=== PATIENT | female | born 1990 | race Caucasian/White ===

== ENCOUNTER 2017-04-22 10:05 | Outpatient (CLI) | payer BC ==
--- NOTE | 2017-04-22 13:57 | MRI ---
LUMBAR SPINE MRI WITH AND WITHOUT CONTRAST: Date: 04/22/17 HISTORY: [place]. L4-L5 diskectomy. Sciatica and back pain. COMPARISON: None. TECHNIQUE: MRI lumbar spine is performed without intravenous Gadolinium administration. Multisequential, multipl jenna imaging is performed. FINDINGS: Appropriate T1 marrow signal intensity in the lumbar vertebra. Lumbar spine vertebral body height is maintained. There is no fracture. No significant STIR hyperintensity to suggest edema or ligamentous injury. No pathologic enhancement of the vertebral bodies. No abnormal enhancement within the thecal sac, cauda equina, or conus medullaris. Symmetric signal intensity of the psoas muscles. Appropriate signal intensity of the visualized solid organs. Conus medullaris terminates at the mid L1 level. L1-L2: Adequate disc hydration. No significant central canal stenosis or foraminal narrowing. L2-L3: Adequate disc hydration. No significant central canal stenosis or foraminal narrowing. L3-L4: Adequate disc hydration. No significant central canal stenosis or foraminal narrowing. L4-L5: Adequate disc hydration. Minimal generalized disc bulge. Minimal central canal stenosis. Neural marycarmen david are patent bilaterally. L5-S1: Desiccation with mild loss of disc space height. There is a broad based disc bulge with left subartic ular component. There is also inferior disc extrusion into left subarticular zone. There is a left he milaminectomy defect. On the postcontrast images, there is enhancing scar tissue at the defect site. There is also enhancement in the left subarticular zone suggesting scar tissue peripheral to the isabel ersing left S1 nerve root. At the level and inferior to the disc space, there is partial obscuration of the traversing left S1 nerve root due to disc material. No significant narrowing of the right suba rticular zone. No significant central canal stenosis. Neural foramina are patent bilaterally. IMPRESSION: 1. Degenerative disease at L5-S1 with posterior disc extrusion as well as inferior disc extrusion to the left subarticular zone. Partial obscuration of traversing left S1 nerve root. 2. Enhancing scar tissue in the left subarticular zone just superior to the L5-S1 disc space. POS: [facility]
== END 2017-04-22 10:06 | disposition home or self-care (01) ==
LOC: SCSMRI 10:05
PROVIDERS: ATTEND Neurological Surgery
DX: M51.06 Intervertebral disc disorders with myelopathy, lumbar region (principal); M21.379 Foot drop, unspecified foot
CPT/HCPCS: 72158

== ENCOUNTER 2017-06-10 16:28 | Outpatient (CLI) | payer BC ==
[2017-06-10 17:22] LABS: Hemoglobin 14.4 g/dL (12.0-16.0); Mean Corpuscular HGB CONC 35.3 g/dL (32.0-36.0); Mean Corpuscular Hemoglobin 31.3 pg (27.0-31.0); Mean Corpuscular Volume 88.8 fl (81.0-99.0); Mean Platelet Volume 8.8 fL (7.4-10.4); Platelet Count 203 thou/uL (130-400); RBC Distribution Width 11.4 % (11.5-14.5); White Blood Cell (WBC) Count 7.6 thou/uL (4.8-10.8)
[2017-06-10 17:45] LABS: Anion Gap 13 mmol/L (10-20); BUN (Urea Nitrogen) 14 mg/dL (7.0-18.7); Calc. Creatinine Clearance 0 mL/min (70-130); Calcium 9.4 mg/dL (7.8-10.44); Carbon Dioxide 22 mmol/L (22-29); Chloride 106 mmol/L (98-107); Estimated GFR-MDRD Greater than 90; Glucose 86 mg/dL (70-105); Potassium 3.7 mmol/L (3.5-5.1); Sodium 137 mmol/L (136-145)
--- NOTE | 2017-06-12 08:08 | EKG ---
Test Reason : Blood Pressure : / mmHG Vent. Rate : 094 BPM Atrial Rate : 094 BPM P-R Int : 166 ms QRS Dur : 084 ms QT Int : 358 ms P-R-T Axes : 057 077 000 degrees QTc Int : 447 ms Normal sinus rhythm Possible Left atrial enlargement Possible Anterior infarct , age undetermined Abnormal ECG No previous ECGs available Confirmed by KERLINE CHAVEZ ([id number]) on 06/12/2017 8:08:05 AM Referred By: KAYLEY Confirmed By:KERLINE CHAVEZ
== END 2017-06-10 16:29 | disposition home or self-care (01) ==
LOC: LABBT 16:28
PROVIDERS: ATTEND Neurological Surgery
DX: Z01.818 Encounter for other preprocedural examination (principal); M54.16 Radiculopathy, lumbar region; R94.31 Abnormal electrocardiogram [ECG] [EKG]
CPT/HCPCS: 80048; 85027; 93005; 93010

== ENCOUNTER 2017-06-17 05:45 | Day surgery (SDC) | payer BC ==
[2017-06-10 17:19] VITALS: BMI 35.9
[2017-06-17] MEDS ORDERED: Fentanyl 100 MCG/2 ML VIAL ONE ×2 (06:26→09:04)
[2017-06-17] MEDS ORDERED: Lidocaine 2% Jelly 5 ML TUBE ONE (06:26)
[2017-06-17] MEDS ORDERED: Midazolam HCl 2 mg/2 ml Vial ONE (06:26)
[2017-06-17] MEDS ORDERED: CEFAZOLIN/Water 2 GM/20 ML SYRINGE ONE (06:30)
[2017-06-17] MEDS ORDERED: Sodium Chloride 0.9% 10 ML ONE (07:30)
--- NOTE | 2017-06-17 08:43 | OP ---
DATE OF PROCEDURE: 06/17/2017 SURGEON: Noe Shook M.D. [employer]ER: Abdias Marina PA-C PROCEDURES: Left L4-L5 laminectomy, facetectomy, foraminotomy, discectomy, interbody arthrodesis, in travertebral biomechanical device, local morselized autograft, demineralized bone matrix, posterior l ateral arthrodesis and pedicle screw instrumentation L4-L5. PROCEDURE IN DETAIL: The patient was brought to the operating room and intubated. She was rolled in the prone position on gel-filled chest rolls. The previous incision was reopened and the L4-5 regio n was exposed. We identified the prior left L4-5 hemilaminotomy and performed a complete left L4-L5 laminectomy, facetectomy, and foraminotomy. We found herniated disk material beneath the left L5 ner ve root which was removed and a complete decompression of left L5 was achieved. The disc itself was incised and debrided in multiple fragments and the bony endplates decorticated for the purpose of art hrodesis. An appropriately sized intravertebral biomechanical PEEK device was brought into the field , filled with demineralized bone matrix and local morselized autograft, and tapped in place securely at L4-5. Next, pedicle screws were placed at left L4 and left L5 using lateral fluoroscopic guidance and positioning was confirmed with rotational x-ray. A andrei was secured between the screws, connecte d by nuts which were final tightened. We then extensively irrigated, immaculate hemostasis was secur ed. A combination of demineralized device and local morselized autograft was laid over the right smyth inar and posterolateral surfaces for the purpose of arthrodesis. Vancomycin powder was applied and t he wound was then closed in anatomic layers.
[2017-06-17] MEDS ORDERED: HYDROcodone/Acetaminophen 5/325 mg Tablet ONE (10:14)
[2017-06-17] MEDS ORDERED: Lidocaine 1% PF 5 ML VIAL ONE (15:53)
[2017-06-17] MEDS ORDERED: Dexamethasone 20 MG/5 ML VIAL ONE (15:53)
[2017-06-17] MEDS ORDERED: Ondansetron HCl/PF 4 MG/2 ML Vial ONE (15:53)
[2017-06-17] MEDS ORDERED: ePHEDrine/0.9% NaCl/PF SYRINGE 50 mg/10 ml ONE (15:53)
[2017-06-17] MEDS ORDERED: PROPOFOL 200 MG/20 ML VIAL ONE (15:53)
[2017-06-17] MEDS ORDERED: Glycopyrrolate 0.2 MG/ML 5 ML SYRINGE ONE (15:53)
== END 2017-06-17 11:32 | disposition home or self-care (01) ==
LOC: SDC 05:45
PROVIDERS: ATTEND Neurological Surgery
PROC: 0ST20ZZ Resection of Lumbar Vertebral Disc, Open Approach (ICD-10-PCS; principal; 2017-06-17)
PROC: 0SG00AJ Fusion of Lumbar Vertebral Joint with Interbody Fusion Device, Posterior Approach, Anterior Column, Open Approach (ICD-10-PCS; principal; 2017-06-17)
DX: M54.16 Radiculopathy, lumbar region (principal); F41.9 Anxiety disorder, unspecified; F32.9 Major depressive disorder, single episode, unspecified; E66.9 Obesity, unspecified; Z68.35 Body mass index [BMI] 35.0-35.9, adult; Z79.3 Long term (current) use of hormonal contraceptives; Z79.899 Other long term (current) drug therapy; Z98.890 Other specified postprocedural states
CPT/HCPCS: 96374; A4216; C1713; C1768; J1100; J2001; J2250; J2405; J2704; J3010; J3370; J3490

== ENCOUNTER 2017-07-02 15:46 | Outpatient (CLI) | payer BC ==
--- NOTE | 2017-07-02 16:17 | RAD ---
TWO VIEWS LUMBAR SPINE: 07/02/17 HISTORY: Lumbar disc disorder with myelopathy. Followup surgery. FINDINGS: There is a transitional vertebra at the lumbosacral junction with partial lumbarization of the S1 yesy tebral body.. Postsurgical changes related to posterior fusion of the L5-S1 level is noted with later al left sided pedicular screws and posterior andrei transfixing this level. Intradiscal prosthesis is no sol in place. Skin clips overlie the midline. No hardware complication is seen. Vertebral body heights are within normal limits. There is no fracture or subluxation. IMPRESSION: Postsurgical changes lower lumbar spine related to posterior fusion. No hardware complication is appr eciated. POS: [facility]
== END 2017-07-02 15:47 | disposition home or self-care (01) ==
LOC: TBSIIMAG 15:46
PROVIDERS: ATTEND Neurological Surgery
DX: M51.06 Intervertebral disc disorders with myelopathy, lumbar region (principal); Z98.1 Arthrodesis status
CPT/HCPCS: 72100

== ENCOUNTER 2017-08-06 13:37 | Outpatient (CLI) | payer BC ==
--- NOTE | 2017-08-06 14:42 | RAD ---
LUMBAR SPINE 2 VIEWS: HISTORY: Lumbar radiculopathy. Postop followup. COMPARISON: 07/02/17. FINDINGS: Pedicle screws on the left transfix L5-S1. S1 is mildly transitional. Interbody implant at this lev el is unchanged in position. Posterior alignment is preserved. IMPRESSION: Postop changes with no evidence of interval change from prior exam. POS: [facility]
== END 2017-08-06 13:38 | disposition home or self-care (01) ==
LOC: TBSIIMAG 13:37
PROVIDERS: ATTEND Neurological Surgery
DX: M54.16 Radiculopathy, lumbar region (principal); Z98.1 Arthrodesis status
CPT/HCPCS: 72100

== ENCOUNTER 2018-05-02 08:04 | Outpatient (CLI) | payer OTHER ==
--- NOTE | 2018-05-02 10:17 | MRI ---
MRI RIGHT KNEE PERFORMED WITHOUT CONTRAST ENHANCEMENT: HISTORY: Knee injury approximately a month ago. FINDINGS: The anterior as well as posterior cruciate ligaments are intact. The medial as well as lateral menisci are normal in shape and appearance. The medial and lateral collateral ligaments and the iliotibial band regions are normal. The patellar articular cartilage is intact. Some mild edema changes associated with the lateral face t suggest some grade 1 chondromalacia change. The medial and lateral patellar retinaculum and compa ceps and patellar tendons are normal. There is some minimal fluid adjacent to the semimembranosus tendon, of questionable significance. No bursal collection noted. IMPRESSION: 1. No evidence of meniscal or cruciate ligament injury. 2. Grade 1 chondromalacia changes of the lateral facet of the patella. 3. Minimal amount of fluid seen associated with the semimembranosus tendon as it inserts along the p osteromedial border of the tibia. POS: [facility]
== END 2018-05-02 08:05 | disposition home or self-care (01) ==
LOC: SCSMRI 08:04
PROVIDERS: ATTEND Family Medicine
DX: S89.91XD Unspecified injury of right lower leg, subsequent encounter (principal)

== ENCOUNTER 2019-01-24 08:28 | Day surgery (SDC) | payer BC ==
[2019-01-24] MEDS ORDERED: hydrALAZINE 20 MG/ML VIAL SLOW IVP PRN (08:38)
--- NOTE | 2019-01-24 09:10 | PDOC.LDHP ---
Labor and Delivery H&P Chief complaint: other (vaginal spotting) HPI: 28YO @ 32.3 WGA who presents to L&D with CC of vaginal spotting that she noticed upon using the bathroom @ ~ 0750 this AM. Reports a h/o hemorrhoids & constipation and was unsure at first if the blood was vaginal or rectal but stated she wiped again in the front and it was vaginal so came in for evaluation. Denies any intercourse since last week. No vaginal itching, burning , d/c, LOF or dysuria. Also denies any associated fever/chills, N/V of back pain. Endorses regular movement and denies any abdominal pain or regular contractions. Current gestational age (weeks): 32 (32.3 WGA) Due date: 03/18/19 Grav: 1 Para: 0 Current complications: none Past Medical History: anxiety Current medications: pre- vitamins Previous surgical history: none (spinal fusion) Allergies/Adverse Reactions: Allergies Allergy/AdvReac Type Severity Reaction Status Date / Time No Known Allergies Allergy Verified 01/24/19 09:00 Social history: none - Physical Exam Vital signs reviewed and normal: yes General: NAD, resting Heart: RRR Lungs: CTAB Abdomen: gravid Extremeties: normal range of motion FHT: category 1 - OB Labs Blood type: O RH: negative 1 hour GCT: negative GBS: unknown - Plan Plan: other -: 28YO @ 32.3 weeks who presents for evaluation for vaginal spotting that began shortly [employer]. Vaginal spotting: - Vitals WNLs w/ exception of mild tachycardia. FHTs reassuring w/ baseline in 130s & accelerations w/ moderate variability. No regular contractions noted. - UA obtained via clean catch & VP3 swab obtained on speculum exam with brown/ white moderate d/c noted and friable cervix but no active bleeding noted. PAPA also done w/ h/o hemorrhoids & no blood noted. No external hemorrhoids seen. - Will continue to monitor & await UA results and likely d/c patient home once they have been received. Rh Negative: - s/p rhogam on 12/24/18. Will order type & screen to assess Ab level & administer Rhogam PRN based on results. Dispo: Continue monitoring pending UA results. Addendum - Attending - Attending Attestation Date/Time: 01/24/19 [id number] I personally evaluated the patient and discussed the management with Dr. Griffin. I agree with the History, Examination, Assessment and Plan documented above.
[2019-01-24 10:47] LABS: Bacteria/HPF None Seen HPF (None Seen); Bilirubin Negative (Negative); Blood, Urine Negative (Negative); Clarity Clear (Clear); Glucose, Urine (Dipstick) Normal (Negative); Leukocyte Negative Leu/uL (Negative); Nitrite Negative (Negative); Protein, Urine (Dipstick) Negative (Neg-Trace); RBC/HPF 0-3 HPF (0-3); Squamous Epithelial 0-3 HPF (0-3); Urobilinogen Normal mg/dL (Less than 2); WBC/HPF 0-3 HPF (0-3)
[2019-01-24 11:00] LABS: Urine Culture Reflex No No
--- NOTE | 2019-01-24 11:44 | PDOC.BPN ---
- Brief Progress Note 28YO @ 32.2 WGA here for vaginal spotting: Vaginal Spotting: - UA WNLs but VP3 still pending. Suspect cervicitis/vaginitis as etiology for bleeding. Will call with results of VP3 once finalized & treat PRN. RH negative: - Patient Ab positive. No need for Rhogam injection at this time. Dispo: Will d/c home w/ instructions to follow-up with [employer] for regularly BEATRICE appts.
== END 2019-01-24 11:45 | disposition home or self-care (01) ==
LOC: L&D/OP 08:28
PROVIDERS: ATTEND Obstetrics & Gynecology
DX: O26.853 Spotting complicating pregnancy, third trimester (principal); Z3A.32 32 weeks gestation of pregnancy; Z98.1 Arthrodesis status
CPT/HCPCS: 36415; 81001; 86850; 86870; 86900; 86901; 87480; 87510; 87660

== ENCOUNTER 2019-12-21 10:43 | Outpatient (CLI) | payer BC ==
--- NOTE | 2019-12-21 11:15 | RAD ---
EXAM: Chest PA and lateral: HISTORY: Left shoulder pain x1 month. COMPARISON: None FINDINGS: Heart: Normal cardiac silhouette Aorta: Unremarkable Pulmonary vessels: Normal Costophrenic angles: Costophrenic angles are clear. Lungs: No consolidation or masses. Pneumothorax: No pneumothorax Osseous structures: No osseous abnormalities IMPRESSION: No acute cardiopulmonary process.
== END 2019-12-21 10:44 | disposition home or self-care (01) ==
LOC: SCSRAD 10:43
PROVIDERS: ATTEND Psychiatry & Neurology Neurology
DX: G25.89 Other specified extrapyramidal and movement disorders (principal)
CPT/HCPCS: 71046